=== PATIENT | female | born 1980 | race Caucasian/White ===

== ENCOUNTER → 2016-05-29 | Outpatient (CLI) | payer BC ==
[2016-05-29 18:02] LABS: ALT/SGPT 31 U/L (12-78); AST/SGOT 24 U/L (15-37); BLOOD UREA NITROGEN 10 mg/dl (7-18); BUN/CREATININE RATIO 12.5 (10-20); CALCIUM 9.6 mg/dl (8.5-10.1); CARBON DIOXIDE 27 mmol/L (21-32); CHLORIDE 103 mmol/L (98-107); CREATININE 0.78 mg/dl (0.60-1.20); GLUCOSE 97 mg/dl (70-99); POTASSIUM 4.5 mmol/L (3.5-5.1); SODIUM 141 mmol/L (136-145)
[2016-05-29 18:17] LABS: ALB/GLOB RATIO 1.2 (0.9-2); ALKALINE PHOSPHATASE 60 U/L (45-117)
== END | disposition home or self-care (01) ==
LOC: C.LABSPEC 16:29
PROVIDERS: ATTEND Family Medicine
DX: N64.52 Nipple discharge (principal)

== ENCOUNTER → 2016-05-29 | Outpatient (CLI) | payer BC | END | disposition home or self-care (01) | LOC: C.PAPS 09:47 | PROVIDERS: ATTEND Family Medicine | DX: Z12.72 Encounter for screening for malignant neoplasm of vagina (principal) ==

== ENCOUNTER → 2016-07-11 | Outpatient (CLI) | payer BC ==
--- NOTE | 2016-07-12 14:27 | MAMMOGRAPHY REPORT ---
BILATERAL FIRST EVER DIGITAL SCREENING MAMMOGRAM TOMOSYNTHESIS WITH CAD: 07/11/2016 CLINICAL HISTORY: Routine screening. Baseline exam. The patient reported to the technologist that she has had bilateral milky discharge since her child was born 5 years ago; she reported that her do ctor is aware of this. TECHNIQUE: Breast tomosynthesis in addition to standard 2D mammography was performed. Current study was also evaluated with a Computer Aided Detection (CAD) system. COMPARISON: No prior exams were available for comparison. BREAST COMPOSITION: The tissue of both breasts is heterogeneously dense, which may obscure small ma sses. FINDINGS: No suspicious masses, calcifications, or areas of architectural distortion are noted in e ither breast. IMPRESSION: ACR BI-RADS CATEGORY 1: NEGATIVE There is no mammographic evidence of malignancy. Recommend clinical follow-up for bilateral milky n ipple discharge. Also recommend routine bilateral screening mammograms starting at age of 40 unless otherwise clinically indicated. The patient will receive written notification of the results. Approximately 10% of breast cancers are not detected with mammography. A negative mammographic repor t should not delay biopsy if a clinically suggestive mass is present. Nadira Castellanos M.D. ah/:07/12/2016 12:09:17 Social Sciences Research Scientist: Verena DON)([place]), [facility] letter sent: Normal 1/2 BI-RADS Code: ACR BI-RADS Category 1: Negative
== END | disposition home or self-care (01) ==
LOC: C.MAMM 07:14
PROVIDERS: ATTEND Family Medicine
DX: Z12.31 Encounter for screening mammogram for malignant neoplasm of breast (principal)

== ENCOUNTER → 2017-05-30 | Outpatient (CLI) | payer OTHER | END | disposition home or self-care (01) | LOC: C.PAPS 12:54 | PROVIDERS: ATTEND Family Medicine | DX: Z12.72 Encounter for screening for malignant neoplasm of vagina (principal) ==